=== PATIENT | male | born 1970 | race Caucasian/White ===

== ENCOUNTER 2016-09-21 08:20 | Day surgery (SDC) | payer MEDICARE, MEDICAID ==
[~2016-09-21] VITALS: Ht 149.9 cm; Wt 63.0 kg
[~2016-09-21 08:20] MED LIST: CLAR10CA3 PO; FLON1SPR; MULT1TAB18 PO; VITA-122 PO
[2016-09-21] MEDS ORDERED: dexameTHASONE 4 MG/ML 1ML VIAL (J1100) As Ordered ONE (08:22)
[2016-09-21] MEDS ORDERED: LIDOCAINE 2% INJ 100 MG/5 ML SDV (FOR ANES.) As Ordered ONE (08:22)
[2016-09-21] MEDS ORDERED: PROPOFOL 200 MG/20 ML VIAL As Ordered ONE (08:22)
[2016-09-21] MEDS ORDERED: ROCURONIUM BROMIDE 50 MG/5 ML VIAL As Ordered ONE (08:22)
[2016-09-21] MEDS ORDERED: ONDANSETRON 4MG/2ML VIAL (J2405) As Ordered ONE (08:22)
[2016-09-21] MEDS ORDERED: fentaNYL 250 MCG/5 ML INJECTION (J3010) As Ordered ONE (08:22)
[2016-09-21] MEDS ORDERED: MIDAZOLAM INJ 2 MG/2 ML VIAL (J2250) As Ordered ONE (08:23)
[2016-09-21] MEDS ORDERED: LIDOCAINE 2% W/ EPINEPHRINE 1.7 ML DENTAL INJ As Ordered ONE ×6 (10:00→14:54)
[2016-09-21] MEDS ORDERED: ePHEDrine SULFATE 25 MG/5 ML(5MG/ML) SYRINGE As Ordered ONE (13:00)
[2016-09-21] MEDS ORDERED: PHENYLephrine HCL 500 MCG/5 ML (100MCG/ML) SYRINGE (J2370) As Ordered ONE (13:33)
[2016-09-21] MEDS ORDERED: NEOSTIGMINE 1MG/ML 5 ML SYRINGE (J2710) As Ordered ONE (14:54)
[2016-09-21] MEDS ORDERED: GLYCOPYRROLATE INJ 0.2 MG/ML 2 ML VIAL As Ordered ONE (14:54)
[2016-09-21] MEDS ORDERED: ONDANSETRON 4MG/2ML VIAL (J2405) IV PRN (16:45)
[2016-09-21] MEDS ORDERED: LR 1,000 ML IV SCH (16:45)
[2016-09-21] MEDS ORDERED: PERCOCET 5MG/325MG TAB PO PRN (16:45)
[2016-09-21] MEDS ORDERED: HYDROmorphone HCL 1 MG/ML SYRINGE (J1170) IV PRN (16:45)
[2016-09-21] MEDS ORDERED: fentaNYL 100 MCG/2 ML INJECTION (J3010) IV PRN (16:45)
[2016-09-21] MEDS ORDERED: PERCOCET 5MG/325MG TAB As Ordered ONE (18:47)
[2016-09-21 20:00] VITALS: BP 112/81
[2016-09-21 20:30] VITALS: BP 112/59
[2016-09-21 21:30] VITALS: BP 110/60
[2016-09-21 22:30] VITALS: BP 115/75
[2016-09-21] MEDS ORDERED: ONDANSETRON 4MG/2ML VIAL (J2405) IV ONE (23:00)
[2016-09-21 23:30] VITALS: BP 120/65
[2016-09-22 06:00] VITALS: BP 104/68
--- NOTE | 2016-09-22 06:09 | CR ---
DATE OF ADMISSION: 09/21/2016 CONSULTING PROVIDER: Dr. Ellison REASON FOR CONSULTATION: Overnight observation medical management. HISTORY OF PRESENT ILLNESS: The patient is a 46-year-old male patient of Nataliia Dukes PA-C who presented to the hospital for a same-day surgery for dental caries by Dr. Ellison. He tolerated procedure well and Dr. Ellison wanted to keep him overnight for observation and obstructive sleep apnea (ANDREIA) protocol given the patient's history of ANDREIA. The patient was cleared for preoperative procedure by Nataliia Dukes on 09/19/2016. He the tolerated procedure well. REVIEW OF SYSTEMS: The patient was only complaining of some nausea and abdominal pain. The rest of review of systems was negative. PAST MEDICAL HISTORY: 1. Significant for Down syndrome. 2. Allergic rhinitis. 3. Vitamin deficiency. ALLERGIES: No known drug allergies. PAST SURGICAL HISTORY: Hernia repair. SOCIAL HISTORY: No tobacco use. No alcohol use. No recreational drug use. FAMILY HISTORY: Noncontributory. HOME MEDICATIONS: Vitamin D3, Flonase, Allergy Relief and Claritin. PHYSICAL EXAMINATION: VITALS: Temperature 98.4, pulse 81, respiratory rate 97, blood pressure is 112/81, pulse oximetry 97% on 2 liters nasal cannula. HEENT: Pupils equal, round, react to light accommodation. NECK: Neck is supple. No jugular venous distention (JVD). LUNGS: Clear bilaterally. ABDOMEN: Soft, nontender, nondistended. EXTREMITIES: No clubbing, cyanosis or edema. ASSESSMENT/PLAN: 1. Dental caries status post dental work by Dr. Ellison. We will monitor the patient on continuous pulse oximeter overnight and order obstructive sleep apnea (ANDREIA) protocol. The patient will likely be discharged in the morning once cleared by primary team. 2. History of Down syndrome. 3. History of vitamin D deficiency. 4. Deep venous thrombosis (DVT) prophylaxis. Sequential compression devices (sequential compression device) while in bed. cc: Devin Ellison MD
--- NOTE | 2016-09-23 08:13 | RO ---
DATE OF PROCEDURE: 09/21/2016 PREPROCEDURE DIAGNOSIS: Dental caries. POSTPROCEDURE DIAGNOSIS: Dental caries. SURGEON: Subha Ellison DDS PROCEDURE: The patient, Lucas Lyn, was brought to the operating room and placed onto the operating room table in the supine position. After all monitoring equipment was attached to the patient, vital signs were checked and general anesthetic medicaments were delivered via inhalation. Nasal intubation proceeded and tube extension was secured into position after breathing was monitored. The patient was then prepped and draped for dental procedures. The intraoral cavity was inspected and suctioned free of gross secretions. One moist throat pack was placed, bite block placed. Radiograph taken, six periapical. Decay removal followed by composite condensation was completed on the distal occlusal, buccal, and lingual surface of tooth #5. Mesial and facial surface of tooth #7, mesial, distal and buccal surface of teeth #9, 12, 23, 24, 25, 26, and 30. Mesial, distal, buccal, and lingual surface of tooth #10. Mesial, occlusal , distal, buccal and lingual surface of tooth #13. Buccal surface of tooth #31. Distal occlusal and buccal surface of tooth #32. Six carpules of 2% Lidocaine with 1:100,000 epinephrine was administered vial infiltration. Extraction of teeth #1, 3, 11, 14, 15, 17, 19, 22, 27, and 29 completed with a straight elevator and forceps. Gelfoam and #3-0 chromic gut sutures applied to newly edentulous area. Hemostasis obtained prior to dismissal. Prophy of remaining dentition completed. Fluoride varnish application also completed on remaining dentition. Final removal of all gross fluids from intra and extraoral structures. Bite block removed. Patient then left by the dental in the care of presiding anesthesiologist. There was continuous removal of all gross fluids throughout duration of all performed dental procedures. JAMAAL
== END 2016-09-22 09:50 | disposition home or self-care (01) ==
LOC: M SDC 08:20 → M MS5PR 19:48 → M SDC 09-22 09:50
PROVIDERS: ATTEND Dentist General Practice
DX: K02.9 Dental caries, unspecified (principal); Q90.9 Down syndrome, unspecified; G47.33 Obstructive sleep apnea (adult) (pediatric); J30.9 Allergic rhinitis, unspecified; E55.9 Vitamin D deficiency, unspecified
CPT/HCPCS: 41899; 70310; 88300; J1100; J2250; J2370; J2405; J2710; J3010

== ENCOUNTER → 2017-01-06 | Outpatient (CLI) | payer MEDICARE, MEDICAID ==
--- NOTE | 2017-01-14 07:08 | SLEEPHOME ---
DATE OF PROCEDURE: 01/06/2017 ORDERED BY: Shannen Murrieta. INTERPRETATION: Diagnostic home sleep testing was performed due to concern for the obstructive sleep apnea syndrome. For testing, a NOX-T3 respiratory monitoring device was used. Continuous record was made of pulse, oxygen saturation, air flow, chest and abdominal strain, and body position. 10 hours and 59 minutes of data were reviewed. There were 8 hours and 44 minutes marked as time in bed. During the interval marked time in bed, there were 346 respiratory events identified of 10 seconds in duration or greater for a respiratory event index of 39.6. The events were primarily obstructive though significant central and mixed apneas were also seen. Baseline pulse rate 62 beats per minute. Pulse rate ranged from 51 to 103. Baseline saturation 91%. Lowest oxygen saturation 77%. Testing was performed in both the supine and non-supine positions. IMPRESSION: Abnormal home sleep testing with repetitive respiratory events and oxygen desaturations to 77% with a respiratory event index of 39.6 is consistent with the obstructive sleep apnea syndrome. RECOMMENDATION: Given the occurrence of central events with profound oxygen desaturation, the patient should be referred for formal in laboratory pressure titration.
== END ==
LOC: M SLEEP HO 11:17
PROVIDERS: ATTEND Nurse Practitioner Adult Health
DX: G47.30 Sleep apnea, unspecified (principal)

== ENCOUNTER → 2017-01-17 | Outpatient (CLI) | payer MEDICARE, MEDICAID ==
--- NOTE | 2017-01-22 14:22 | SLEEPCENT ---
DATE OF STUDY: 01/17/2017 ORDERED BY: Shannen Murrieta NP Nocturnal polysomnography was performed for the titration of pressure therapy in this patient with a clinical diagnosis of obstructive sleep apnea syndrome confirmed by home testing which revealed a respiratory event index of 39. For testing, the patient was fit with a ResMed Quattro full face mask of extra small size, 4 cm of water pressure were applied to the circuit and the lights were extinguished. 7 hours and 20 minutes of data were reviewed. There were 398 minutes of sleep identified. Sleep latency was short at 4.5 minutes. Rapid eye movement (REM) sleep was delayed at 123 minutes. Sleep architecture improved with optimal pressure therapy. Overall sleep efficiency was 91.6%. EKG showed a sinus rhythm with an average heart rate of 52 beats per minute. EEG showed reasonably normal waveforms for awake and sleep. Respiratory events were best palliated with CPAP at a pressure of +12. Activity was seen in the limb leads. There were two trains of events and limb movement arousal index was 10.6. IMPRESSION: Obstructive sleep apnea syndrome (G47.33). RECOMMENDATION: Nightly use of pressure therapy, 12 cm of water. Should the patient's sleep symptoms persist, further evaluation of limb movements may be necessary.
== END ==
LOC: M SLEEP 19:33
PROVIDERS: ATTEND Nurse Practitioner Adult Health
DX: G47.33 Obstructive sleep apnea (adult) (pediatric) (principal)

== ENCOUNTER → 2017-10-19 | Outpatient (REF) | payer MEDICARE, MEDICAID ==
[2017-10-19 19:40] LABS: HEMATOCRIT 46.2 % (42.0-52.0); HEMOGLOBIN 15.9 g/dl (13.5-17.5); MEAN CORPUSCULAR HEMOGLOBIN 33.3 pg (27.0-33.0); MEAN CORPUSCULAR HGB CONC 34.4 g/dl (32.0-36.5); MEAN CORPUSCULAR VOLUME 96.7 fl (80.0-96.0); PLATELET COUNT, AUTOMATED 250 10^3/uL (150-450); RED BLOOD COUNT 4.78 10^6/uL (4.30-6.10); WHITE BLOOD COUNT 4.2 10^3/uL (4.0-10.0)
[2017-10-19 20:15] LABS: TOTAL 25(OH) VITAMIN D 19.9 NG/ML (30.0-100.0)
[2017-10-19 20:22] LABS: ANION GAP 5 MEQ/L (8-16); BLOOD UREA NITROGEN 19 MG/DL (7-18); CALCIUM LEVEL 8.2 MG/DL (8.5-10.1); CARBON DIOXIDE LEVEL 33 MEQ/L (21-32); CHLORIDE LEVEL 105 MEQ/L (98-107); CREATININE FOR GFR 1.03 MG/DL (0.70-1.30); GLOMERULAR FILTRATION RATE > 60.0 (>60); GLUCOSE, FASTING 96 MG/DL (70-100); POTASSIUM SERUM 4.1 MEQ/L (3.5-5.1); SODIUM LEVEL 143 MEQ/L (136-145)
== END ==
LOC: M SFHCADAM 14:26
DX: E55.9 Vitamin D deficiency, unspecified (principal); Z13.1 Encounter for screening for diabetes mellitus; G47.33 Obstructive sleep apnea (adult) (pediatric); Z79.899 Other long term (current) drug therapy
CPT/HCPCS: 82306

== ENCOUNTER → 2019-10-25 | Outpatient (REF) | payer MEDICARE, MEDICAID ==
[2019-10-25 17:31] LABS: HEMATOCRIT 49.6 % (42.0-52.0); HEMOGLOBIN 16.9 g/dl (13.5-17.5); MEAN CORPUSCULAR HEMOGLOBIN 33.8 pg (27.0-33.0); MEAN CORPUSCULAR HGB CONC 34.1 g/dl (32.0-36.5); MEAN CORPUSCULAR VOLUME 99.2 fl (80.0-96.0); PLATELET COUNT, AUTOMATED 247 10^3/uL (150-450); WHITE BLOOD COUNT 4.4 10^3/uL (4.0-10.0)
[2019-10-25 18:34] LABS: ALBUMIN 3.8 GM/DL (3.2-5.2); ALT/SGPT 35 U/L (12-78); BILIRUBIN,TOTAL 0.5 MG/DL (0.2-1.0); BLOOD UREA NITROGEN 19 MG/DL (7-18); CALCIUM LEVEL 8.4 MG/DL (8.5-10.1); CARBON DIOXIDE LEVEL 31 MEQ/L (21-32); CHLORIDE LEVEL 104 MEQ/L (98-107); CHOLESTEROL LEVEL 171 MG/DL (<200); CHOLESTEROL RISK RATIO 3.288 (<5); CREATININE FOR GFR 1.03 MG/DL (0.70-1.30); GLOMERULAR FILTRATION RATE > 60.0 (>60); GLUCOSE, FASTING 77 MG/DL (70-100); HDL CHOLESTEROL 52 MG/DL (>40); LDL CHOLESTEROL 83 MG/DL (<100); NON-HDL-C 119 MG/DL; SODIUM LEVEL 141 MEQ/L (136-145); TRIGLYCERIDES LEVEL 182 MG/DL (<150)
== END ==
LOC: M SFHCADAM 14:00
PROVIDERS: ATTEND Physician Assistant
DX: E66.9 Obesity, unspecified (principal); Z13.220 Encounter for screening for lipoid disorders; Z13.1 Encounter for screening for diabetes mellitus; Z79.899 Other long term (current) drug therapy
CPT/HCPCS: 80053; 80061; 84439; 84443; 85027; G0463

== ENCOUNTER → 2020-07-21 | Outpatient (REF) | payer MEDICARE, MEDICAID ==
[2020-07-21 13:00] LABS: BASO # 0.1 10^3/uL (0.0-0.2); BASO % 2.9 % (0.0-1.0); EOS # 0.1 10^3/uL (0.0-0.5); EOS % 3.2 % (0.0-3.0); HEMATOCRIT 51.7 % (42.0-52.0); HEMOGLOBIN 17.1 g/dl (13.5-17.5); LYMPH # 1.1 10^3/uL (1.5-5.0); LYMPH % 26.9 % (24.0-44.0); MEAN CORPUSCULAR HEMOGLOBIN 32.8 pg (27.0-33.0); MEAN CORPUSCULAR HGB CONC 33.1 g/dl (32.0-36.5); MONO # 0.5 10^3/uL (0.0-0.8); MONO % 11.5 % (2.0-8.0); NEUTROPHILS # 2.3 10^3/uL (1.5-8.5); NEUTROPHILS % 55.3 % (36.0-66.0); PLATELET COUNT, AUTOMATED 249 10^3/uL (150-450); RED BLOOD COUNT 5.22 10^6/uL (4.30-6.10); WHITE BLOOD COUNT 4.1 10^3/uL (4.0-10.0)
[2020-07-21 13:37] LABS: ALBUMIN 3.8 GM/DL (3.2-5.2); ALT/SGPT 32 U/L (12-78); BILIRUBIN,TOTAL 0.3 MG/DL (0.2-1.0); BLOOD UREA NITROGEN 16 MG/DL (7-18); CALCIUM LEVEL 8.7 MG/DL (8.5-10.1); CARBON DIOXIDE LEVEL 33 MEQ/L (21-32); CHLORIDE LEVEL 105 MEQ/L (98-107); CREATININE FOR GFR 1.06 MG/DL (0.70-1.30); FREE T4 0.73 NG/DL (0.76-1.46); GLOMERULAR FILTRATION RATE > 60.0 (>60); GLUCOSE, FASTING 58 MG/DL (70-100); POTASSIUM SERUM 4.3 MEQ/L (3.5-5.1); SODIUM LEVEL 142 MEQ/L (136-145); TOTAL PROTEIN 6.8 GM/DL (6.4-8.2)
[2020-07-21 13:38] LABS: TOTAL 25(OH) VITAMIN D 35.7 NG/ML (30.0-100.0); VITAMIN B12 LEVEL 351 PG/ML
[2020-07-21 13:39] LABS: FOLATE 13.6 NG/ML
== END ==
LOC: M SFHCADAM 09:15
PROVIDERS: ATTEND Physician Assistant
DX: M25.50 Pain in unspecified joint (principal); E55.9 Vitamin D deficiency, unspecified; D75.89 Other specified diseases of blood and blood-forming organs; Z79.899 Other long term (current) drug therapy
CPT/HCPCS: 80053; 82306; 82607; 82746; 84439; 84443; 85025; G0463

== ENCOUNTER → 2020-10-27 | Outpatient (REF) | payer MEDICARE, MEDICAID | LOC: M SFHCADAM 09:53 | PROVIDERS: ATTEND Physician Assistant | DX: E03.9 Hypothyroidism, unspecified (principal); D75.89 Other specified diseases of blood and blood-forming organs; E16.2 Hypoglycemia, unspecified; R41.3 Other amnesia ==

== ENCOUNTER → 2020-10-28 | Outpatient (CLI) | payer MEDICARE, MEDICAID ==
[2020-10-28 12:22] LABS: BASO # 0.1 10^3/uL (0.0-0.2); BASO % 3.7 % (0.0-1.0); EOS # 0.1 10^3/uL (0.0-0.5); EOS % 3.7 % (0.0-3.0); HEMATOCRIT 52.1 % (42.0-52.0); HEMOGLOBIN 17.2 g/dl (13.5-17.5); LYMPH # 1.1 10^3/uL (1.5-5.0); LYMPH % 29.7 % (24.0-44.0); MEAN CORPUSCULAR HEMOGLOBIN 32.9 pg (27.0-33.0); MEAN CORPUSCULAR VOLUME 99.6 fl (80.0-96.0); MONO # 0.4 10^3/uL (0.0-0.8); MONO % 11.6 % (2.0-8.0); NEUTROPHILS # 1.8 10^3/uL (1.5-8.5); PLATELET COUNT, AUTOMATED 254 10^3/uL (150-450); RED BLOOD COUNT 5.23 10^6/uL (4.30-6.10); WHITE BLOOD COUNT 3.5 10^3/uL (4.0-10.0)
[2020-10-28 13:13] LABS: BLOOD UREA NITROGEN 18 MG/DL (7-18); CARBON DIOXIDE LEVEL 34 MEQ/L (21-32); CHLORIDE LEVEL 104 MEQ/L (98-107); CREATININE FOR GFR 1.07 MG/DL (0.70-1.30); FOLATE 10.9 NG/ML; FREE T4 0.74 NG/DL (0.76-1.46); GLOMERULAR FILTRATION RATE > 60.0 (>60); GLUCOSE, FASTING 78 MG/DL (70-100); POTASSIUM SERUM 4.3 MEQ/L (3.5-5.1); SODIUM LEVEL 141 MEQ/L (136-145); VITAMIN B12 LEVEL 457 PG/ML
[2020-10-29 18:21] LABS: FREE LAMBDA LIGHT CHAINS SERUM 23.2 mg/L (5.7-26.3); KAPPA/LAMBDA RATIO SERUM 1.77 (0.26-1.65)
== END ==
LOC: M WUC 09:37
PROVIDERS: ATTEND Family Medicine
DX: E03.9 Hypothyroidism, unspecified (principal); D75.89 Other specified diseases of blood and blood-forming organs; E16.2 Hypoglycemia, unspecified; R41.3 Other amnesia

== ENCOUNTER → 2020-11-03 | Outpatient (CLI) | payer MEDICARE, MEDICAID ==
[2020-11-03 13:16] LABS: TOTAL PROTEIN 6.6 GM/DL (6.4-8.2)
[2020-11-04 13:21] LABS: ALBUMIN 3.97 GM/DL (3.29-5.55); ALBUMIN % 60.2 % (55.8-66.1); ALPHA-1-GLOBULIN % 3.7 % (2.9-4.9); ALPHA-1-GLOBULINS 0.24 GM/DL (0.17-0.41); ALPHA-2-GLOBULINS 0.63 GM/DL (0.42-0.99); ALPHA-2-GLOBULINS % 9.5 % (7.1-11.8); BETA-1-GLOBULINS 0.41 GM/DL (0.28-0.60); BETA-1-GLOBULINS % 6.2 % (4.7-7.2); BETA-2-GLOBULINS 0.33 GM/DL (0.19-0.55); GAMMA GLOBULIN % 15.4 % (11.1-18.8); GAMMA GLOBULINS 1.02 GM/DL (0.65-1.58)
[2020-11-04 17:07] LABS: FREE KAPPA LIGHT CHAINS SERUM 38.7 mg/L (3.3-19.4); FREE LAMBDA LIGHT CHAINS SERUM 22.1 mg/L (5.7-26.3); KAPPA/LAMBDA RATIO SERUM 1.75 (0.26-1.65)
== END ==
LOC: M WUC 09:13
PROVIDERS: ATTEND Physician Assistant
DX: D89.89 Other specified disorders involving the immune mechanism, not elsewhere classified (principal)

== ENCOUNTER → 2021-05-06 | Outpatient (REF) | payer MEDICARE, MEDICAID ==
[2021-05-06 18:42] LABS: HEMATOCRIT 46.6 % (42.0-52.0); HEMOGLOBIN 15.6 g/dl (13.5-17.5); MEAN CORPUSCULAR HGB CONC 33.5 g/dl (32.0-36.5); MEAN CORPUSCULAR VOLUME 98.5 fl (80.0-96.0); PLATELET COUNT, AUTOMATED 233 10^3/uL (150-450); RED BLOOD COUNT 4.73 10^6/uL (4.30-6.10); WHITE BLOOD COUNT 5.2 10^3/uL (4.0-10.0)
[2021-05-06 19:03] LABS: ALBUMIN 3.3 GM/DL (3.2-5.2); ALT/SGPT 33 U/L (12-78); BILIRUBIN,TOTAL 0.6 MG/DL (0.2-1.0); BLOOD UREA NITROGEN 16 MG/DL (7-18); CALCIUM LEVEL 8.4 MG/DL (8.5-10.1); CARBON DIOXIDE LEVEL 32 MEQ/L (21-32); CHLORIDE LEVEL 107 MEQ/L (98-107); CHOLESTEROL LEVEL 148 MG/DL (<200); CREATININE FOR GFR 1.13 MG/DL (0.70-1.30); FREE T4 0.83 NG/DL (0.76-1.46); GLOMERULAR FILTRATION RATE > 60.0 (>56); GLUCOSE, FASTING 103 MG/DL (70-100); HDL CHOLESTEROL 50 MG/DL (>40); LDL CHOLESTEROL 54 MG/DL (<100); NON-HDL-C 98 MG/DL; SODIUM LEVEL 143 MEQ/L (136-145); THYROID STIMULATING HORMONE 0.133 uIU/ML (0.358-3.740); TOTAL PROTEIN 6.3 GM/DL (6.4-8.2); TRIGLYCERIDES LEVEL 222 MG/DL (<150)
[2021-05-10 16:11] LABS: FREE KAPPA LIGHT CHAINS SERUM 35.8 mg/L (3.3-19.4); FREE KAPPA LIGHT CHAINS URINE 16.77 mg/L (0.63-113.79); FREE LAMBDA LIGHT CHAINS SERUM 22.3 mg/L (5.7-26.3); FREE LAMBDA LIGHT CHAINS URINE 2.07 mg/L (0.47-11.77); KAPPA/LAMBDA RATIO SERUM 1.61 (0.26-1.65); KAPPA/LAMBDA RATIO URINE 8.1 (1.03-31.76)
== END ==
LOC: M SFHCADAM 15:52
PROVIDERS: ATTEND Physician Assistant
DX: E03.9 Hypothyroidism, unspecified (principal); D75.89 Other specified diseases of blood and blood-forming organs; D89.89 Other specified disorders involving the immune mechanism, not elsewhere classified; Z12.5 Encounter for screening for malignant neoplasm of prostate; Z13.220 Encounter for screening for lipoid disorders; Z13.1 Encounter for screening for diabetes mellitus
CPT/HCPCS: 80053; 80061; 83883; 84439; 84443; 85027; G0103; G0463

== ENCOUNTER 2021-12-27 23:07 | Emergency (ER) | payer MEDICARE, MEDICAID ==
[~2021-12-27] VITALS: Ht 149.9 cm; Wt 63.0 kg
[2021-12-28 00:41] LABS: BASO # 0.1 10^3/uL (0.0-0.2); BASO % 1.7 % (0.0-1.0); EOS # 0.2 10^3/uL (0.0-0.5); EOS % 3.3 % (0.0-3.0); HEMATOCRIT 49.3 % (42.0-52.0); HEMOGLOBIN 17.1 g/dl (13.5-17.5); LYMPH # 1.3 10^3/uL (1.5-5.0); LYMPH % 23.3 % (24.0-44.0); MEAN CORPUSCULAR HEMOGLOBIN 33.6 pg (27.0-33.0); MEAN CORPUSCULAR HGB CONC 34.7 g/dl (32.0-36.5); MEAN CORPUSCULAR VOLUME 96.9 fl (80.0-96.0); MONO # 0.5 10^3/uL (0.0-0.8); MONO % 8.2 % (2.0-8.0); NEUTROPHILS # 3.6 10^3/uL (1.5-8.5); NEUTROPHILS % 63.2 % (36.0-66.0); PLATELET COUNT, AUTOMATED 226 10^3/uL (150-450); RED BLOOD COUNT 5.09 10^6/uL (4.30-6.10); WHITE BLOOD COUNT 5.7 10^3/uL (4.0-10.0)
[2021-12-28 01:38] LABS: ALBUMIN 3.4 GM/DL (3.2-5.2); ALT/SGPT 30 U/L (12-78); BILIRUBIN,TOTAL 0.3 MG/DL (0.2-1.0); BLOOD UREA NITROGEN 14 MG/DL (7-18); CALCIUM LEVEL 8.8 MG/DL (8.5-10.1); CARBON DIOXIDE LEVEL 30 MEQ/L (21-32); CHLORIDE LEVEL 107 MEQ/L (98-107); CREATININE FOR GFR 1.05 MG/DL (0.70-1.30); GLOMERULAR FILTRATION RATE > 60.0 (>56); GLUCOSE, FASTING 105 MG/DL (70-100); LIPASE 117 U/L (73-393); MAGNESIUM LEVEL 2.3 MG/DL (1.8-2.4); POTASSIUM SERUM 4.2 MEQ/L (3.5-5.1); SODIUM LEVEL 141 MEQ/L (136-145); TOTAL PROTEIN 6.8 GM/DL (6.4-8.2)
[2021-12-28] MEDS ORDERED: NS 1,000 ML IV ONE (02:35)
[2021-12-28 05:10] VITALS: BP 128/64
== END 2021-12-28 05:29 | disposition home or self-care (01) ==
LOC: EDBD 23:07 → M ED 23:07
DX: K52.9 Noninfective gastroenteritis and colitis, unspecified (principal); Z91.040 Latex allergy status; Z79.2 Long term (current) use of antibiotics; Z79.899 Other long term (current) drug therapy

== ENCOUNTER → 2022-02-08 | Outpatient (CLI) | payer MEDICARE, MEDICAID | LOC: M WHC 10:59 | PROVIDERS: ATTEND Physician Assistant | DX: Z13.820 Encounter for screening for osteoporosis (principal); M85.89 Other specified disorders of bone density and structure, multiple sites ==

== ENCOUNTER → 2022-05-09 | Outpatient (CLI) | payer MEDICARE, MEDICAID ==
[2022-05-09 09:00] LABS: HEMATOCRIT 49.3 % (42.0-52.0); HEMOGLOBIN 16.4 g/dl (13.5-17.5); MEAN CORPUSCULAR HEMOGLOBIN 32.9 pg (27.0-33.0); MEAN CORPUSCULAR HGB CONC 33.3 g/dl (32.0-36.5); PLATELET COUNT, AUTOMATED 220 10^3/uL (150-450); RED BLOOD COUNT 4.98 10^6/uL (4.30-6.10); WHITE BLOOD COUNT 2.8 10^3/uL (4.0-10.0)
[2022-05-09 09:08] LABS: HEMOGLOBIN A1c 4.9 % (4.0-6.0)
[2022-05-09 09:27] LABS: THYROID STIMULATING HORMONE 2.728 uIU/ML (0.55-4.78)
[2022-05-09 09:32] LABS: ALBUMIN 3.4 G/DL (3.2-5.2); ALKALINE PHOSPHATASE 91 U/L (46-116); ALT/SGPT 28 U/L (7.0-40); AST/SGOT 30 U/L (<34); BILIRUBIN,TOTAL 0.8 MG/DL (0.3-1.2); BLOOD UREA NITROGEN 16 MG/DL (9-23); CALCIUM LEVEL 8.2 MG/DL (8.5-10.1); CARBON DIOXIDE LEVEL 27 MMOL/L (20-31); CHLORIDE LEVEL 107 MMOL/L (98-107); CHOLESTEROL LEVEL 155 MG/DL (<200); CREATININE FOR GFR 1.06 MG/DL (0.70-1.30); GLOMERULAR FILTRATION RATE > 60.0 (>56); GLUCOSE, FASTING 86 MG/DL (60-100); HDL CHOLESTEROL 51.6 MG/DL (>40); NON-HDL-C 103 MG/DL; POTASSIUM SERUM 4.4 MMOL/L (3.5-5.1); SODIUM LEVEL 143 MMOL/L (136-145); TOTAL PROTEIN 6.2 G/DL (5.7-8.2); TRIGLYCERIDES LEVEL 112 MG/DL (<150)
== END ==
LOC: M LAB 08:15
PROVIDERS: ATTEND Physician Assistant
DX: E03.9 Hypothyroidism, unspecified (principal); G47.33 Obstructive sleep apnea (adult) (pediatric); E66.9 Obesity, unspecified; Z13.1 Encounter for screening for diabetes mellitus; Z12.5 Encounter for screening for malignant neoplasm of prostate; Z13.220 Encounter for screening for lipoid disorders
CPT/HCPCS: 36415; 80053; 80061; 83036; 84439; 84443; 85027; G0103

== ENCOUNTER → 2022-05-13 | Outpatient (CLI) | payer MEDICARE, MEDICAID ==
[2022-05-13 09:43] LABS: BASO # 0.1 10^3/uL (0.0-0.2); BASO % 2.1 % (0.0-1.0); EOS # 0.1 10^3/uL (0.0-0.5); EOS % 2.4 % (0.0-3.0); HEMATOCRIT 50.5 % (42.0-52.0); HEMOGLOBIN 16.7 g/dl (13.5-17.5); LYMPH # 0.8 10^3/uL (1.5-5.0); LYMPH % 26.9 % (24.0-44.0); MEAN CORPUSCULAR HGB CONC 33.1 g/dl (32.0-36.5); MEAN CORPUSCULAR VOLUME 99.8 fl (80.0-96.0); MONO # 0.7 10^3/uL (0.0-0.8); MONO % 23.8 % (2.0-8.0); NEUTROPHILS # 1.3 10^3/uL (1.5-8.5); NEUTROPHILS % 44.5 % (36.0-66.0); PLATELET COUNT, AUTOMATED 178 10^3/uL (150-450); RED BLOOD COUNT 5.06 10^6/uL (4.30-6.10); WHITE BLOOD COUNT 2.9 10^3/uL (4.0-10.0)
== END ==
LOC: M LAB 09:16
PROVIDERS: ATTEND Physician Assistant
DX: D72.819 Decreased white blood cell count, unspecified (principal)

== ENCOUNTER → 2022-06-21 | Outpatient (CLI) | payer MEDICARE, MEDICAID ==
[2022-06-21 14:28] LABS: BASO # 0.1 10^3/uL (0.0-0.2); BASO % 2.3 % (0.0-1.0); EOS # 0.1 10^3/uL (0.0-0.5); EOS % 3.3 % (0.0-3.0); HEMATOCRIT 48.4 % (42.0-52.0); LYMPH # 1.3 10^3/uL (1.5-5.0); LYMPH % 32.5 % (24.0-44.0); MEAN CORPUSCULAR HEMOGLOBIN 33.1 pg (27.0-33.0); MEAN CORPUSCULAR HGB CONC 33.1 g/dl (32.0-36.5); MONO # 0.3 10^3/uL (0.0-0.8); MONO % 8.2 % (2.0-8.0); NEUTROPHILS # 2.1 10^3/uL (1.5-8.5); NEUTROPHILS % 53.4 % (36.0-66.0); PLATELET COUNT, AUTOMATED 218 10^3/uL (150-450); RED BLOOD COUNT 4.84 10^6/uL (4.30-6.10); WHITE BLOOD COUNT 3.9 10^3/uL (4.0-10.0)
== END ==
LOC: M LAB 13:48
PROVIDERS: ATTEND Physician Assistant
DX: D72.818 Other decreased white blood cell count (principal)

== ENCOUNTER → 2022-06-28 | Outpatient (CLI) | payer MEDICARE, MEDICAID ==
[2022-06-28 16:43] LABS: ALBUMIN 3.5 G/DL (3.2-5.2); ALKALINE PHOSPHATASE 85 U/L (46-116); ALT/SGPT 21 U/L (7.0-40); AST/SGOT 29 U/L (<34); BILIRUBIN,TOTAL 0.4 MG/DL (0.3-1.2); BLOOD UREA NITROGEN 16 MG/DL (9-23); CALCIUM LEVEL 8.4 MG/DL (8.5-10.1); CARBON DIOXIDE LEVEL 33 MMOL/L (20-31); CHLORIDE LEVEL 101 MMOL/L (98-107); GLOMERULAR FILTRATION RATE > 60.0 (>56); GLUCOSE, FASTING 91 MG/DL (60-100); POTASSIUM SERUM 4.4 MMOL/L (3.5-5.1); SODIUM LEVEL 140 MMOL/L (136-145); TOTAL PROTEIN 6.5 G/DL (5.7-8.2)
== END ==
LOC: M LAB 15:21
PROVIDERS: ATTEND Physician Assistant
DX: D72.818 Other decreased white blood cell count (principal)

== ENCOUNTER → 2022-07-13 | Outpatient (CLI) | payer MEDICARE, MEDICAID ==
[~2022-07-13] MED LIST changes: +ACET1TAB55 PO; +ALEN70TA82; +DONE10TA90; +GUAI100L6 PO; +IBUP200T46 PO; +LEVO75TA4; +MEMA1TAB3; +MYLA1SUS PO
== END ==
LOC: M LAB 08:24
PROVIDERS: ATTEND Family Medicine
DX: E55.9 Vitamin D deficiency, unspecified (principal); Z79.899 Other long term (current) drug therapy

== ENCOUNTER → 2022-07-13 | Outpatient (CLI) | payer MEDICARE, MEDICAID ==
[2022-07-13 09:48] LABS: THYROID STIMULATING HORMONE 1.081 uIU/ML (0.55-4.78)
[2022-07-13 09:49] LABS: FREE T4 1.04 NG/DL (0.89-1.76)
== END ==
LOC: M LAB 08:28
PROVIDERS: ATTEND Physician Assistant
DX: E03.9 Hypothyroidism, unspecified (principal); E55.9 Vitamin D deficiency, unspecified; Z79.890 Hormone replacement therapy; Z79.899 Other long term (current) drug therapy

== ENCOUNTER 2023-03-14 09:01 | Day surgery (SDC) | payer MEDICARE, MEDICAID ==
[~2023-03-14] VITALS: Ht 147.3 cm; Wt 57.7 kg
[~2023-03-14 09:01] MED LIST changes: +AZEL1SPR3; +CelecoXIB 400 MG CAP PO ONE; +D200CAP PO; +LIDOCAINE 1% SDV 30ML VIAL As Ordered ONE; +LIDOCAINE 2% 100MG/5ML SDV (FOR ANES.) As Ordered ONE; +MIDAZOLAM INJ 2MG/2ML VIAL As Ordered ONE; +ONDANSETRON 4MG 2ML VIAL As Ordered ONE; +ROCURONIUM BROMIDE 50MG/5ML VIAL As Ordered ONE; +SEVOFLURANE INHAL SOLN 250 ML BTL As Ordered ONE; +THERTAB52 PO; +ceFAZolin SOD 2 GM in IV 1 EA IV ONE; +fentaNYL 250 MCG/5 ML INJECTION As Ordered ONE; +propofoL 200 MG/20 ML VIAL As Ordered ONE
[2023-03-14] MEDS ORDERED: LR 1,000 ML IV SCH ×2 (10:00→13:20)
[2023-03-14] MEDS ORDERED: GLYCOPYRROLATE INJ 0.2 MG/ML 2 ML VIAL As Ordered ONE (10:56)
[2023-03-14] MEDS ORDERED: SUGAMMADEX SODIUM 500 MG/5 ML VIAL (BRIDION) As Ordered ONE (11:21)
[2023-03-14] MEDS ORDERED: PHENYLephrine 500MCG 5ML (100MCG/ML) SYRINGE As Ordered ONE (11:21)
[2023-03-14] MEDS ORDERED: ePHEDrine SULFATE 25 MG/5 ML(5MG/ML) SYRINGE As Ordered ONE (11:21)
[2023-03-14] MEDS ORDERED: ACETAMINOPHEN 1000MG 100ML IV BAG As Ordered ONE (11:21)
[2023-03-14] MEDS ORDERED: KETOROLAC 60MG 2ML VIAL As Ordered ONE (11:28)
[2023-03-14] MEDS ORDERED: fentaNYL 100 MCG/2 ML INJECTION IV PRN (13:20)
[2023-03-14] MEDS ORDERED: oxyCODONE 5MG TAB PO PRN (13:20)
[2023-03-14] MEDS ORDERED: HYDROMORPHONE HCL 0.5 MG/ 0.5 ML SYRINGE IV PRN (13:20)
[2023-03-14] MEDS ORDERED: ONDANSETRON 4MG 2ML VIAL IV PRN (13:20)
[2023-03-14] MEDS ORDERED: NORCO, ANEXSIA 5/325MG TABLET (HYDROcodone/ACETAMINOPHEN) PO PRN ×2 (13:35)
[2023-03-14 14:20] VITALS: BP 121/73; TEMP 97.1; O2SAT 95
[2023-03-14] MEDS ORDERED: KETOROLAC 30 MG/ML 1ML VIAL IV SCH (19:00)
== END 2023-03-14 14:48 | disposition home or self-care (01) ==
LOC: M SDC 09:01
PROVIDERS: ATTEND Surgery
DX: K40.90 Unilateral inguinal hernia, without obstruction or gangrene, not specified as recurrent (principal); Q90.9 Down syndrome, unspecified; E55.9 Vitamin D deficiency, unspecified; E03.9 Hypothyroidism, unspecified; M81.0 Age-related osteoporosis without current pathological fracture; F03.90 Unspecified dementia, unspecified severity, without behavioral disturbance, psychotic disturbance, mood disturbance, and anxiety; J30.2 Other seasonal allergic rhinitis; Z79.899 Other long term (current) drug therapy
CPT/HCPCS: 49650; C1781; J0131; J0665; J1100; J1885; J2250; J2371; J2405; J3010; S2900

== ENCOUNTER → 2023-04-04 | Outpatient (CLI) | payer MEDICARE, MEDICAID ==
[~2023-04-04] MED LIST changes: -ALEN70TA82; +ALEN70TA82 PO; -CelecoXIB 400 MG CAP PO ONE; -DONE10TA90; +DONE10TA90 PO; -LEVO75TA4; +LEVO75TA4 PO; -LIDOCAINE 1% SDV 30ML VIAL As Ordered ONE; -LIDOCAINE 2% 100MG/5ML SDV (FOR ANES.) As Ordered ONE; -MEMA1TAB3; +MEMA1TAB3 PO; -MIDAZOLAM INJ 2MG/2ML VIAL As Ordered ONE; -ONDANSETRON 4MG 2ML VIAL As Ordered ONE; -ROCURONIUM BROMIDE 50MG/5ML VIAL As Ordered ONE; -SEVOFLURANE INHAL SOLN 250 ML BTL As Ordered ONE; -ceFAZolin SOD 2 GM in IV 1 EA IV ONE; -fentaNYL 250 MCG/5 ML INJECTION As Ordered ONE; -propofoL 200 MG/20 ML VIAL As Ordered ONE
[2023-04-04 12:54] LABS: BASO # 0.1 10^3/uL (0.0-0.2); BASO % 1.9 % (0.0-1.0); EOS # 0.1 10^3/uL (0.0-0.5); EOS % 2.4 % (0.0-3.0); HEMOGLOBIN 16.9 g/dl (13.5-17.5); LYMPH # 1.1 10^3/uL (1.5-5.0); LYMPH % 25.9 % (24.0-44.0); MEAN CORPUSCULAR HEMOGLOBIN 33.5 pg (27.0-33.0); MEAN CORPUSCULAR HGB CONC 33.8 g/dl (32.0-36.5); MONO # 0.4 10^3/uL (0.0-0.8); MONO % 8.8 % (2.0-8.0); NEUTROPHILS # 2.6 10^3/uL (1.5-8.5); NEUTROPHILS % 60.8 % (36.0-66.0); PLATELET COUNT, AUTOMATED 231 10^3/uL (150-450); RED BLOOD COUNT 5.05 10^6/uL (4.30-6.10); WHITE BLOOD COUNT 4.2 10^3/uL (4.0-10.0)
[2023-04-04 13:22] LABS: ALBUMIN 3.6 G/DL (3.2-5.2); ALKALINE PHOSPHATASE 92 U/L (46-116); ALT/SGPT 17 U/L (7.0-40); AST/SGOT 25 U/L (<34); BILIRUBIN,TOTAL 0.4 MG/DL (0.3-1.2); BLOOD UREA NITROGEN 14 MG/DL (9-23); CALCIUM LEVEL 8.5 MG/DL (8.5-10.1); CARBON DIOXIDE LEVEL 30 MMOL/L (20-31); CHLORIDE LEVEL 104 MMOL/L (98-107); CREATININE FOR GFR 0.95 MG/DL (0.70-1.30); GLOMERULAR FILTRATION RATE > 60.0 (>56); GLUCOSE, FASTING 94 MG/DL (60-100); POTASSIUM SERUM 4.1 MMOL/L (3.5-5.1); SODIUM LEVEL 141 MMOL/L (136-145); TOTAL PROTEIN 6.7 G/DL (5.7-8.2)
== END ==
LOC: M LAB 12:26
PROVIDERS: ATTEND Physician Assistant
DX: R10.31 Right lower quadrant pain (principal)

== ENCOUNTER → 2023-04-04 | Outpatient (REF) | payer MEDICARE, MEDICAID | LOC: M SFHCADAM 11:34 | PROVIDERS: ATTEND Physician Assistant | DX: R10.31 Right lower quadrant pain (principal) ==

== ENCOUNTER → 2023-04-04 | Outpatient (CLI) | payer MEDICARE, MEDICAID ==
[~2023-04-04] MED LIST changes: +GASTROGRAFIN SOLUTION 30ML As Ordered ONE; +ISOVUE-370 76% 100ML VIAL As Ordered ONE
== END ==
LOC: M RAD 12:20
PROVIDERS: ATTEND Physician Assistant
DX: K40.90 Unilateral inguinal hernia, without obstruction or gangrene, not specified as recurrent (principal)

== ENCOUNTER → 2023-04-05 | Outpatient (CLI) | payer MEDICARE, MEDICAID ==
[~2023-04-05] MED LIST changes: -GASTROGRAFIN SOLUTION 30ML As Ordered ONE; -ISOVUE-370 76% 100ML VIAL As Ordered ONE
[2023-04-05 09:57] LABS: APPEARANCE, URINE HAZY (CLEAR); BACTERIA, URINE AUTO NEGATIVE (NEGATIVE); BILIRUBIN, URINE AUTO NEGATIVE (NEGATIVE); BLOOD, URINE BLOOD NEGATIVE (NEGATIVE); COLOR, URINE YELLOW (YELLOW); GLUCOSE, URINE (UA) AUTO NEGATIVE (NEGATIVE); KETONE, URINE AUTO NEGATIVE (NEGATIVE); LEUKOCYTE ESTERASE, URINE AUTO NEGATIVE (NEGATIVE); MUCUS, URINE SMALL (NEGATIVE); NITRITE, URINE AUTO NEGATIVE (NEGATIVE); PROTEIN, URINE AUTO NEGATIVE (NEGATIVE); RBC, URINE AUTO 0 /HPF (0-3); SQUAMOUS EPITHELIAL CELL UR AU 0 /HPF (0-6); UROBILINOGEN, URINE AUTO 0.2 mg/dL (0.0-2.0); WBC, URINE AUTO 0 /HPF (0-3)
== END ==
LOC: M LAB 09:11
PROVIDERS: ATTEND Physician Assistant
DX: N32.89 Other specified disorders of bladder (principal); Z79.899 Other long term (current) drug therapy

== ENCOUNTER → 2023-05-30 | Outpatient (REF) | payer MEDICARE, MEDICAID | LOC: M SFHCADAM 16:09 | PROVIDERS: ATTEND Physician Assistant | DX: Z12.5 Encounter for screening for malignant neoplasm of prostate (principal); Z13.220 Encounter for screening for lipoid disorders; Z13.1 Encounter for screening for diabetes mellitus; E55.9 Vitamin D deficiency, unspecified ==

== ENCOUNTER → 2023-06-01 | Outpatient (CLI) | payer MEDICARE, MEDICAID ==
[~2023-06-01] MED LIST changes: +LIDOCAINE 1% MDV 20ML VIAL As Ordered ONE
[2023-06-01 13:40] VITALS: BP 129/78; TEMP 98.1; O2SAT 97
== END ==
LOC: M RAD 13:44
PROVIDERS: ATTEND Surgery
DX: K40.90 Unilateral inguinal hernia, without obstruction or gangrene, not specified as recurrent (principal); T81.89XD Other complications of procedures, not elsewhere classified, subsequent encounter

== ENCOUNTER 2023-06-02 08:58 | Day surgery (SDC) | payer MEDICARE, MEDICAID ==
[~2023-06-02] VITALS: Ht 149.9 cm; Wt 57.6 kg
[2023-06-02] MEDS ORDERED: LR 1,000 ML IV SCH ×2 (09:30→11:35)
[2023-06-02] MEDS ORDERED: propofoL 200 MG/20 ML VIAL As Ordered ONE (10:23)
[2023-06-02] MEDS ORDERED: LIDOCAINE 2% 100MG/5ML SDV (FOR ANES.) As Ordered ONE (10:23)
[2023-06-02] MEDS ORDERED: ONDANSETRON 4MG 2ML VIAL As Ordered ONE (10:23)
[2023-06-02] MEDS ORDERED: ROCURONIUM BROMIDE 50MG/5ML VIAL As Ordered ONE (10:23)
[2023-06-02] MEDS ORDERED: SUGAMMADEX SODIUM 500 MG/5 ML VIAL (BRIDION) As Ordered ONE (10:23)
[2023-06-02] MEDS ORDERED: fentaNYL 100 MCG/2 ML INJECTION As Ordered ONE (10:27)
[2023-06-02] MEDS ORDERED: oxyCODONE 5MG TAB PO PRN (11:35)
[2023-06-02] MEDS ORDERED: HYDROMORPHONE HCL 0.5 MG/ 0.5 ML SYRINGE IV PRN (11:35)
[2023-06-02] MEDS ORDERED: ONDANSETRON 4MG 2ML VIAL IV PRN (11:35)
[2023-06-02] MEDS ORDERED: fentaNYL 100 MCG/2 ML INJECTION IV PRN (11:35)
[2023-06-02] MEDS ORDERED: LIDOCAINE W/EPINEPHRINE 1% 20ML VIAL As Ordered ONE (11:49)
[2023-06-02 12:45] VITALS: BP 125/62; TEMP 98.3; O2SAT 98
== END 2023-06-02 12:53 | disposition home or self-care (01) ==
LOC: M SDC 08:58
PROVIDERS: ATTEND Dentist Oral and Maxillofacial Surgery
DX: K02.9 Dental caries, unspecified (principal); E03.9 Hypothyroidism, unspecified; M81.0 Age-related osteoporosis without current pathological fracture; F03.90 Unspecified dementia, unspecified severity, without behavioral disturbance, psychotic disturbance, mood disturbance, and anxiety; Q90.9 Down syndrome, unspecified; J30.2 Other seasonal allergic rhinitis; Z79.899 Other long term (current) drug therapy
CPT/HCPCS: 36415; 41899; 80061; 82306; 83036; 88300; G0103; J1100; J2405; J3010

== ENCOUNTER → 2023-06-02 | Outpatient (CLI) | payer MEDICARE, MEDICAID ==
[~2023-06-02] MED LIST changes: -LIDOCAINE 1% MDV 20ML VIAL As Ordered ONE
[2023-06-02 07:40] LABS: HEMOGLOBIN A1c 5.2 % (4.0-6.0)
[2023-06-02 07:45] LABS: CHOLESTEROL RISK RATIO 2.79 (<5); HDL CHOLESTEROL 54.4 MG/DL (>40); LDL CHOLESTEROL 74.2 MG/DL (<100); NON-HDL-C 97.6 MG/DL; PSA SCREENING 0.35 NG/ML (< 4.00)
[2023-06-02 07:48] LABS: TOTAL 25(OH) VITAMIN D 63.4 NG/ML (20.0-100.0)
== END ==
LOC: M LAB 06:28
PROVIDERS: ATTEND Physician Assistant
DX: E55.9 Vitamin D deficiency, unspecified (principal); Z12.5 Encounter for screening for malignant neoplasm of prostate; Z13.220 Encounter for screening for lipoid disorders; Z13.1 Encounter for screening for diabetes mellitus; Z79.899 Other long term (current) drug therapy
CPT/HCPCS: 36415; 80061; 82306; 83036; G0103

== ENCOUNTER → 2023-12-09 | Outpatient (CLI) | payer MEDICARE, MEDICAID ==
[~2023-12-09] MED LIST changes: +COLA100C5 PO; +MIRA3350 PO
[2023-12-09 10:38] LABS: BASO # 0.1 10^3/uL (0.0-0.2); BASO % 2.6 % (0.0-1.0); EOS # 0.1 10^3/uL (0.0-0.5); EOS % 1.9 % (0.0-3.0); HEMATOCRIT 50.7 % (42.0-52.0); HEMOGLOBIN 17.2 g/dl (13.5-17.5); LYMPH % 25.9 % (24.0-44.0); MEAN CORPUSCULAR HEMOGLOBIN 33.8 pg (27.0-33.0); MEAN CORPUSCULAR HGB CONC 33.9 g/dl (32.0-36.5); MEAN CORPUSCULAR VOLUME 99.6 fl (80.0-96.0); MONO # 0.4 10^3/uL (0.0-0.8); MONO % 10.3 % (2.0-8.0); NEUTROPHILS # 2.2 10^3/uL (1.5-8.5); PLATELET COUNT, AUTOMATED 211 10^3/uL (150-450); RED BLOOD COUNT 5.09 10^6/uL (4.30-6.10); WHITE BLOOD COUNT 3.8 10^3/uL (4.0-10.0)
[2023-12-09 10:39] LABS: APPEARANCE, URINE CLEAR (CLEAR); BACTERIA, URINE AUTO NEGATIVE (NEGATIVE); BILIRUBIN, URINE AUTO NEGATIVE (NEGATIVE); BLOOD, URINE BLOOD NEGATIVE (NEGATIVE); COLOR, URINE YELLOW (YELLOW); GLUCOSE, URINE (UA) AUTO NEGATIVE (NEGATIVE); KETONE, URINE AUTO NEGATIVE (NEGATIVE); LEUKOCYTE ESTERASE, URINE AUTO NEGATIVE (NEGATIVE); MUCUS, URINE SMALL (NEGATIVE); NITRITE, URINE AUTO NEGATIVE (NEGATIVE); PROTEIN, URINE AUTO NEGATIVE (NEGATIVE); RBC, URINE AUTO 0 /HPF (0-3); SPECIFIC GRAVITY URINE AUTO 1.017 (1.002-1.035); SQUAMOUS EPITHELIAL CELL UR AU 0 /HPF (0-6); UROBILINOGEN, URINE AUTO 0.2 mg/dL (0.0-2.0); WBC, URINE AUTO 0 /HPF (0-3)
[2023-12-09 10:50] LABS: HEMOGLOBIN A1c 4.9 % (4.0-6.0)
[2023-12-09 11:02] LABS: LIPASE 153 U/L (12-53)
[2023-12-09 11:04] LABS: ALBUMIN 3.7 G/DL (3.2-5.2); ALKALINE PHOSPHATASE 88 U/L (46-116); ALT/SGPT 26 U/L (7.0-40); AST/SGOT 20 U/L (<34); BILIRUBIN,TOTAL 0.8 MG/DL (0.3-1.2); BLOOD UREA NITROGEN 12 MG/DL (9-23); CALCIUM LEVEL 8.7 MG/DL (8.5-10.1); CARBON DIOXIDE LEVEL 34 MMOL/L (20-31); CHLORIDE LEVEL 106 MMOL/L (98-107); CHOLESTEROL LEVEL 153 MG/DL (<200); CHOLESTEROL RISK RATIO 3.03 (<5); CREATININE FOR GFR 1.04 MG/DL (0.70-1.30); GLOMERULAR FILTRATION RATE > 60.0 (>56); GLUCOSE, FASTING 92 MG/DL (60-100); HDL CHOLESTEROL 50.4 MG/DL (>40); LDL CHOLESTEROL 74.6 MG/DL (<100); NON-HDL-C 102.6 MG/DL; POTASSIUM SERUM 4.7 MMOL/L (3.5-5.1); SODIUM LEVEL 141 MMOL/L (136-145); TOTAL PROTEIN 6.7 G/DL (5.7-8.2); TRIGLYCERIDES LEVEL 140 MG/DL (<150)
[2023-12-09 11:07] LABS: THYROID STIMULATING HORMONE 0.619 uIU/ML (0.55-4.78)
[2023-12-09 11:08] LABS: TOTAL 25(OH) VITAMIN D 57.5 NG/ML (20.0-100.0)
[2023-12-09 11:09] LABS: FREE T4 0.97 NG/DL (0.89-1.76)
[2023-12-09 11:10] LABS: VITAMIN B12 LEVEL 395 PG/ML (211-911)
[2023-12-12 13:43] LABS: PSA FREE 0.1 ng/mL; PSA TOTAL 0.2 ng/mL (< OR = 4.0)
== END ==
LOC: M LAB 09:30
PROVIDERS: ATTEND Family Medicine
DX: E03.9 Hypothyroidism, unspecified (principal); F03.90 Unspecified dementia, unspecified severity, without behavioral disturbance, psychotic disturbance, mood disturbance, and anxiety; R10.30 Lower abdominal pain, unspecified; M81.0 Age-related osteoporosis without current pathological fracture; R30.1 Vesical tenesmus; Z79.899 Other long term (current) drug therapy

== ENCOUNTER → 2023-12-12 | Outpatient (CLI) | payer MEDICARE, MEDICAID ==
[~2023-12-12] MED LIST changes: -COLA100C5 PO; -MIRA3350 PO
== END ==
LOC: M RAD 12:46
PROVIDERS: ATTEND Family Medicine
DX: N32.89 Other specified disorders of bladder (principal); K40.20 Bilateral inguinal hernia, without obstruction or gangrene, not specified as recurrent; R59.0 Localized enlarged lymph nodes; R10.30 Lower abdominal pain, unspecified

== ENCOUNTER → 2023-12-12 | Outpatient (CLI) | payer MEDICARE, MEDICAID ==
[2023-12-12 08:32] LABS: C REACTIVE PROTEIN QUANTITATIV < 0.40 MG/DL (<1.0); LIPASE 285 U/L (12-53)
[2023-12-13 17:33] LABS: PROTEIN, TOTAL SO 6.4 g/dL (6.1-8.1)
== END ==
LOC: M LAB 07:26
PROVIDERS: ATTEND Family Medicine
DX: R74.8 Abnormal levels of other serum enzymes (principal)

== ENCOUNTER 2023-12-14 16:50 | Emergency (ER) | payer MEDICARE, MEDICAID ==
[~2023-12-14] VITALS: Ht 149.9 cm; Wt 54.1 kg
[2023-12-14 19:07] VITALS: TEMP 97.2; O2SAT 97
[2023-12-14 19:24] LABS: BASO # 0.1 10^3/uL (0.0-0.2); BASO % 2.7 % (0.0-1.0); EOS # 0.1 10^3/uL (0.0-0.5); EOS % 2.9 % (0.0-3.0); LYMPH # 1.3 10^3/uL (1.5-5.0); LYMPH % 34.2 % (24.0-44.0); MEAN CORPUSCULAR HEMOGLOBIN 33.6 pg (27.0-33.0); MEAN CORPUSCULAR VOLUME 98.7 fl (80.0-96.0); MONO # 0.5 10^3/uL (0.0-0.8); MONO % 12.7 % (2.0-8.0); NEUTROPHILS # 1.8 10^3/uL (1.5-8.5); NEUTROPHILS % 47.2 % (36.0-66.0); PLATELET COUNT, AUTOMATED 219 10^3/uL (150-450); RED BLOOD COUNT 4.76 10^6/uL (4.30-6.10); WHITE BLOOD COUNT 3.8 10^3/uL (4.0-10.0)
[2023-12-14 19:35] LABS: LIPASE 52 U/L (12-53)
[2023-12-14 19:37] LABS: ALBUMIN 3.6 G/DL (3.2-5.2); ALKALINE PHOSPHATASE 85 U/L (46-116); ALT/SGPT 26 U/L (7.0-40); AST/SGOT 20 U/L (<34); BILIRUBIN,DIRECT 0.2 MG/DL (<0.4); BILIRUBIN,TOTAL 0.6 MG/DL (0.3-1.2); BLOOD UREA NITROGEN 14 MG/DL (9-23); CALCIUM LEVEL 8.6 MG/DL (8.5-10.1); CARBON DIOXIDE LEVEL 34 MMOL/L (20-31); CHLORIDE LEVEL 105 MMOL/L (98-107); CREATININE FOR GFR 1.06 MG/DL (0.70-1.30); GLOMERULAR FILTRATION RATE > 60.0 (>56); GLUCOSE, FASTING 92 MG/DL (60-100); POTASSIUM SERUM 3.8 MMOL/L (3.5-5.1); SODIUM LEVEL 142 MMOL/L (136-145); TOTAL PROTEIN 6.4 G/DL (5.7-8.2)
[2023-12-15 00:51] VITALS: BP 109/67
[2023-12-15] MEDS ORDERED: MIRA3350 PO (04:33)
[2023-12-15] MEDS ORDERED: COLA100C5 PO (05:06)
== END 2023-12-15 05:43 | disposition home or self-care (01) ==
LOC: M ED 16:50
DX: K59.00 Constipation, unspecified (principal); E03.9 Hypothyroidism, unspecified; Q90.9 Down syndrome, unspecified; G30.9 Alzheimer's disease, unspecified; Z91.09 Other allergy status, other than to drugs and biological substances; Z79.1 Long term (current) use of non-steroidal anti-inflammatories (NSAID); Z79.810 Long term (current) use of selective estrogen receptor modulators (SERMs); Z79.899 Other long term (current) drug therapy

== ENCOUNTER 2024-01-11 19:02 | Emergency (ER) | payer MEDICARE, MEDICAID ==
[~2024-01-11 19:02] MED LIST changes: +COLA100C5 PO; +DEBR6.5S4 OU; +MIRA3350 PO; +PANT20TA6 PO
[2024-01-12 00:24] VITALS: TEMP 97.5
[2024-01-12 02:10] VITALS: BP 151/59
[2024-01-12 04:32] VITALS: O2SAT 98
== END 2024-01-12 06:37 | disposition home or self-care (01) ==
LOC: M ED 19:02
DX: S90.31XA Contusion of right foot, initial encounter (principal); W10.8XXA Fall (on) (from) other stairs and steps, initial encounter; Q90.9 Down syndrome, unspecified; E03.9 Hypothyroidism, unspecified; Y92.009 Unspecified place in unspecified non-institutional (private) residence as the place of occurrence of the external cause; Y93.89 Activity, other specified; Y99.9 Unspecified external cause status; Z79.1 Long term (current) use of non-steroidal anti-inflammatories (NSAID); Z79.899 Other long term (current) drug therapy

== ENCOUNTER → 2024-02-01 | Outpatient (REF) | payer MEDICARE, MEDICAID ==
[2024-02-01 17:54] LABS: APPEARANCE, URINE CLEAR (CLEAR); BACTERIA, URINE AUTO 1+ (NEGATIVE); BILIRUBIN, URINE AUTO NEGATIVE (NEGATIVE); BLOOD, URINE BLOOD NEGATIVE (NEGATIVE); COLOR, URINE YELLOW (YELLOW); GLUCOSE, URINE (UA) AUTO NEGATIVE (NEGATIVE); KETONE, URINE AUTO NEGATIVE (NEGATIVE); LEUKOCYTE ESTERASE, URINE AUTO NEGATIVE (NEGATIVE); MUCUS, URINE SMALL (NEGATIVE); NITRITE, URINE AUTO NEGATIVE (NEGATIVE); PROTEIN, URINE AUTO NEGATIVE (NEGATIVE); RBC, URINE AUTO 0 /HPF (0-3); SPECIFIC GRAVITY URINE AUTO 1.016 (1.002-1.035); SQUAMOUS EPITHELIAL CELL UR AU 0 /HPF (0-6); UROBILINOGEN, URINE AUTO 0.2 mg/dL (0.0-2.0); WBC, URINE AUTO 1 /HPF (0-3)
== END ==
LOC: M SMT 17:17
PROVIDERS: ATTEND Nurse Practitioner Family
DX: N32.89 Other specified disorders of bladder (principal); Z80.52 Family history of malignant neoplasm of bladder; Z79.899 Other long term (current) drug therapy

== ENCOUNTER → 2024-02-06 | Outpatient (CLI) | payer MEDICARE, MEDICAID ==
[~2024-02-06] MED LIST changes: +GASTROGRAFIN SOLUTION 30ML As Ordered ONE
== END ==
LOC: M RAD 08:26
PROVIDERS: ATTEND Family Medicine
DX: R10.84 Generalized abdominal pain (principal)
CPT/HCPCS: 74176; Q9963

== ENCOUNTER → 2024-02-12 | Outpatient (CLI) | payer MEDICARE, MEDICAID ==
[~2024-02-12] MED LIST changes: -GASTROGRAFIN SOLUTION 30ML As Ordered ONE
== END ==
LOC: M WHC 12:27
PROVIDERS: ATTEND Family Medicine
DX: M81.0 Age-related osteoporosis without current pathological fracture (principal)

== ENCOUNTER → 2024-02-19 | Outpatient (CLI) | payer MEDICARE, MEDICAID | LOC: M RAD 15:00 | PROVIDERS: ATTEND Nurse Practitioner Family | DX: N32.89 Other specified disorders of bladder (principal) ==

== ENCOUNTER 2024-03-12 07:10 | Inpatient (IN) | payer MEDICARE, MEDICAID ==
[2024-03-12] VITALS (21 sets, daily range): BP systolic 85–135; BP diastolic 50–71; TEMP 97.8–98; O2SAT 93–99
[~2024-03-12] VITALS: Ht 149.9 cm; Wt 55.8 kg
[2024-03-12 07:51] LABS: HEMATOCRIT 45.6 % (42.0-52.0); HEMOGLOBIN 15.5 g/dl (13.5-17.5); PLATELET COUNT, AUTOMATED 208 10^3/uL (150-450); RED BLOOD COUNT 4.56 10^6/uL (4.30-6.10); WHITE BLOOD COUNT 5.7 10^3/uL (4.0-10.0)
[2024-03-12] MEDS: NS 500 ML IV ONE (08:07)
[2024-03-12 09:11] LABS: ATYPICAL LYMPH 6 % (0-5); BASOPHILS 1 % (0-1); EOSINOPHILS 4 % (0-3); LYMPHOCYTES 16 % (16-44); METAMYELOCYTES 4 % (0-0); MONOCYTES 9 % (0-5); NEUTROPHILS 48 % (28-66)
[2024-03-12 09:13] LABS: PLATELET ESTIMATE NORMAL (NORMAL)
[2024-03-12 09:25] LABS: LIPASE 48 U/L (12-53)
[2024-03-12 09:29] LABS: FREE T4 1.22 NG/DL (0.89-1.76)
[2024-03-12 09:36] LABS: ALBUMIN 3.3 G/DL (3.2-5.2); ALKALINE PHOSPHATASE 91 U/L (46-116); ALT/SGPT 24 U/L (7.0-40); AST/SGOT 30 U/L (<34); BILIRUBIN,DIRECT 0.2 MG/DL (<0.4); BILIRUBIN,TOTAL 0.6 MG/DL (0.3-1.2); BLOOD UREA NITROGEN 22 MG/DL (9-23); CALCIUM LEVEL 8.4 MG/DL (8.5-10.1); CARBON DIOXIDE LEVEL 29 MMOL/L (20-31); CHLORIDE LEVEL 111 MMOL/L (98-107); CPK CREATINE PHOSPHOKINASE 139 U/L (46-171); CREATININE FOR GFR 1.05 MG/DL (0.70-1.30); GLOMERULAR FILTRATION RATE > 60.0 (>56); GLUCOSE, FASTING 101 MG/DL (60-100); MB/CK RELATIVE INDEX 0.71 (< OR =4); PHOSPHORUS LEVEL 1.3 MG/DL (2.5-4.9); POTASSIUM SERUM 4.2 MMOL/L (3.5-5.1); SODIUM LEVEL 142 MMOL/L (136-145); TOTAL PROTEIN 6.4 G/DL (5.7-8.2)
[2024-03-12] MEDS ORDERED: ISOVUE-370 76% 100ML VIAL As Ordered ONE (09:47)
[2024-03-12] MEDS: LIDOCAINE 2% 5ML JELLY UROJET TOP ONE (10:08)
[2024-03-12] MEDS: PIPERACILLIN/TAZOBACTAM SOD 4.5 GM in DEXTROSE 5% (D5W) ADV/MINI-BAG 50 ML IV ONE (10:08)
[2024-03-12] MEDS: NS 1,000 ML IV ONE ×2 (10:09→14:37)
[2024-03-12] MEDS: levETIRAcetam 250MG TABLET (KEPPRA) PO ONE (10:10)
[2024-03-12 10:57] LABS: MB/CK RELATIVE INDEX 0.57 (< OR =4)
[2024-03-12] MEDS ORDERED: IBAN150T6 PO (11:22)
[2024-03-12] MEDS ORDERED: MEMA10TA PO (11:24)
[2024-03-12] MEDS ORDERED: LORA-1041 PO (11:24)
[2024-03-12] MEDS ORDERED: PANT40TA29 PO (11:26)
[2024-03-12] MEDS ORDERED: [UNRECOGNIZED DRUG - CODE] PO (11:28)
[2024-03-12] MEDS ORDERED: TAMS1CAP17 PO (11:28)
[2024-03-12] MEDS ORDERED: D-20TAB PO (11:31)
[2024-03-12] MEDS ORDERED: MIRA3350 PO (11:39)
[2024-03-12] MEDS ORDERED: IBUP-1720 PO (11:39)
[2024-03-12] MEDS ORDERED: NEOM28OI TOP (11:39)
[2024-03-12] MEDS ORDERED: HOME MED LIST COMPLETE! XX SCH (11:40)
[2024-03-12] MEDS ORDERED: ATROPINE SULF 1MG/10ML SYRINGE IV PRN (13:20)
[2024-03-12] MEDS: cefTRIAXone SOD 1 GM in DEXTROSE 5% (D5W) ADV/MINI-BAG 50 ML IV ONE (14:37)
[2024-03-12] MEDS: IPRATROPIUM 0.5MG/ALBUTEROL 2.5MG INH SOL UD 3ML (DUONEB) NEB SCH (16:00)
[2024-03-12] MEDS: ACETAMINOPHEN *IV* 1,000 MG in IV 1 EA IV ONE (16:28)
[2024-03-12 17:18] LABS: CK-MB VALUE MASS 1.5 NG/ML (<3.6)
[2024-03-12 17:19] LABS: MAGNESIUM LEVEL 1.7 MG/DL (1.8-2.4); PHOSPHORUS LEVEL 2.7 MG/DL (2.5-4.9)
[2024-03-12 17:28] LABS: MB/CK RELATIVE INDEX 0.42 (< OR =4)
[2024-03-12] MEDS: MAG SULF 1GM/100ML (MAG RUN) 1 GM in IV 1 EA IV ONE (18:25)
[2024-03-12] MEDS: NS 1,000 ML IV SCH (18:26)
[2024-03-12] MEDS: KETOROLAC 30 MG/ML 1ML VIAL IV ONE (18:27)
[2024-03-12] MEDS ORDERED: LORazepam 2 MG/ML 1ML VIAL IV PRN (19:25)
[2024-03-12] MEDS: levETIRAcetam 250MG TABLET (KEPPRA) PO SCH (20:36)
[2024-03-12] MEDS ORDERED: MORPHINE 4 MG/ML 1ML VIAL IV PRN (22:25)
[2024-03-12] MEDS: MORPHINE 2 MG/ML 1ML VIAL IV PRN (22:34)
[2024-03-13] VITALS (19 sets, daily range): BP systolic 81–120; BP diastolic 50–74; TEMP 97.9–100.1; O2SAT 94–100
[2024-03-13 05:59] LABS: BASO # 0.1 10^3/uL (0.0-0.2); BASO % 1.9 % (0.0-1.0); EOS # 0.1 10^3/uL (0.0-0.5); EOS % 2.3 % (0.0-3.0); HEMATOCRIT 40.8 % (42.0-52.0); HEMOGLOBIN 13.8 g/dl (13.5-17.5); LYMPH # 0.7 10^3/uL (1.5-5.0); LYMPH % 13.5 % (24.0-44.0); MEAN CORPUSCULAR HEMOGLOBIN 34.2 pg (27.0-33.0); MEAN CORPUSCULAR HGB CONC 33.8 g/dl (32.0-36.5); MONO # 0.4 10^3/uL (0.0-0.8); MONO % 8.3 % (2.0-8.0); NEUTROPHILS # 3.5 10^3/uL (1.5-8.5); NEUTROPHILS % 73.6 % (36.0-66.0); PLATELET COUNT, AUTOMATED 166 10^3/uL (150-450); RED BLOOD COUNT 4.04 10^6/uL (4.30-6.10); WHITE BLOOD COUNT 4.8 10^3/uL (4.0-10.0)
[2024-03-13 06:28] LABS: ALBUMIN 2.6 G/DL (3.2-5.2); ALKALINE PHOSPHATASE 62 U/L (46-116); ALT/SGPT 18 U/L (7.0-40); AST/SGOT 24 U/L (<34); BILIRUBIN,TOTAL 0.7 MG/DL (0.3-1.2); BLOOD UREA NITROGEN 14 MG/DL (9-23); CALCIUM LEVEL 7.7 MG/DL (8.5-10.1); CARBON DIOXIDE LEVEL 28 MMOL/L (20-31); CHLORIDE LEVEL 111 MMOL/L (98-107); CK-MB VALUE MASS < 1.0 NG/ML (<3.6); CPK CREATINE PHOSPHOKINASE 272 U/L (46-171); CREATININE FOR GFR 0.92 MG/DL (0.70-1.30); GLOMERULAR FILTRATION RATE > 60.0 (>56); GLUCOSE, FASTING 88 MG/DL (60-100); MAGNESIUM LEVEL 2.1 MG/DL (1.8-2.4); MB/CK RELATIVE INDEX 0.36 (< OR =4); POTASSIUM SERUM 3.9 MMOL/L (3.5-5.1); SODIUM LEVEL 142 MMOL/L (136-145)
[2024-03-13] MEDS: FAMOTIDINE 20 MG TAB PO SCH (09:10)
[2024-03-13] MEDS: POLYETHYLENE GLYCOL (MIRALAX) 238GM BOTTLE PO ONE (09:10)
[2024-03-13] MEDS: ENOXAPARIN 30MG/0.3ML SYRINGE (J1650 PER 10MG) SC SCH (09:10)
[2024-03-13] MEDS: BISACODYL 10MG SUPP PR ONE (09:11)
[2024-03-13] MEDS: LR 1,000 ML IV ONE (09:13)
[2024-03-13] MEDS: DOXYCYCLINE HYCLATE 100MG TABLET PO SCH (09:56)
[2024-03-13] MEDS: cefTRIAXone SOD 1 GM in DEXTROSE 5% (D5W) ADV/MINI-BAG 50 ML IV SCH (09:56)
[2024-03-13] MEDS: ACETAMINOPHEN *IV* 500 MG in IV 1 EA IV PRN (09:58)
[2024-03-13] MEDS ORDERED: cefTRIAXone SOD 1 GM in DEXTROSE 5% (D5W) ADV/MINI-BAG 50 ML IV SCH (14:00)
[2024-03-13 14:48] LABS: PROCALCITONIN 0.05 ng/ml
[2024-03-13] MEDS: MEMANTINE 5MG TABLET (NAMENDA) PO SCH (23:12)
[2024-03-13] MEDS: TAMSULOSIN 0.4 MG CAP PO SCH (23:13)
[2024-03-14] VITALS (7 sets, daily range): BP systolic 104–140; BP diastolic 65–84; TEMP 97.4–98.3; O2SAT 96–98
[2024-03-14] MEDS: diphenhydrAMINE 25MG CAP PO STA (01:22)
[2024-03-14] MEDS: RAMELTEON 8 MG TAB (ROZEREM) PO STA (01:23)
[2024-03-14 04:52] LABS: BASO # 0.1 10^3/uL (0.0-0.2); BASO % 1.5 % (0.0-1.0); EOS # 0.1 10^3/uL (0.0-0.5); EOS % 1.3 % (0.0-3.0); HEMATOCRIT 40.2 % (42.0-52.0); HEMOGLOBIN 13.7 g/dl (13.5-17.5); LYMPH # 0.8 10^3/uL (1.5-5.0); LYMPH % 11.3 % (24.0-44.0); MEAN CORPUSCULAR HEMOGLOBIN 33.6 pg (27.0-33.0); MEAN CORPUSCULAR HGB CONC 34.1 g/dl (32.0-36.5); MEAN CORPUSCULAR VOLUME 98.5 fl (80.0-96.0); MONO # 0.6 10^3/uL (0.0-0.8); MONO % 9.5 % (2.0-8.0); NEUTROPHILS # 5.1 10^3/uL (1.5-8.5); PLATELET COUNT, AUTOMATED 170 10^3/uL (150-450); RED BLOOD COUNT 4.08 10^6/uL (4.30-6.10); WHITE BLOOD COUNT 6.7 10^3/uL (4.0-10.0)
[2024-03-14 05:23] LABS: ALBUMIN 2.7 G/DL (3.2-5.2); ALKALINE PHOSPHATASE 67 U/L (46-116); ALT/SGPT 19 U/L (7.0-40); AST/SGOT 23 U/L (<34); BILIRUBIN,TOTAL 0.5 MG/DL (0.3-1.2); BLOOD UREA NITROGEN 10 MG/DL (9-23); CALCIUM LEVEL 7.9 MG/DL (8.5-10.1); CARBON DIOXIDE LEVEL 26 MMOL/L (20-31); CHLORIDE LEVEL 112 MMOL/L (98-107); CPK CREATINE PHOSPHOKINASE 259 U/L (46-171); CREATININE FOR GFR 0.82 MG/DL (0.70-1.30); GLOMERULAR FILTRATION RATE > 60.0 (>56); GLUCOSE, FASTING 106 MG/DL (60-100); MAGNESIUM LEVEL 1.8 MG/DL (1.8-2.4); SODIUM LEVEL 142 MMOL/L (136-145); TOTAL PROTEIN 5.2 G/DL (5.7-8.2)
[2024-03-14] MEDS: LIDOCAINE VISCOUS 2% SOLN 15ML UDC PO PRN (09:56)
[2024-03-14] MEDS: HYOSCYAMINE SULFATE 0.125 MG SUBL TABLET SL PRN (09:56)
[2024-03-14] MEDS: MAALOX 30 ML SUSP *UDC PO PRN (10:06)
[2024-03-14] MEDS ORDERED: KEPP250T5 PO (16:38)
[2024-03-14] MEDS ORDERED: FAMO20TA PO (16:38)
[2024-03-14] MEDS ORDERED: CEFD300CAP PO (16:38)
[2024-03-14] MEDS ORDERED: MYLASSUD PO (16:38)
[2024-03-14] MEDS ORDERED: DOXY100T PO (16:38)
[2024-03-15] MEDS ORDERED: CEFDINIR 300 MG CAP (OMNICEF) PO SCH (09:00)
== END 2024-03-14 17:52 | disposition home or self-care (01) | DRG 101 ==
LOC: M ED 07:10 → EDBD 07:10 → M ED INP 13:56 → M ICU 14:08
PROVIDERS: ADMIT Internal Medicine Critical Care Medicine; ATTEND Internal Medicine Critical Care Medicine
DX: R56.9 Unspecified convulsions (principal); J98.11 Atelectasis; S22.049A Unspecified fracture of fourth thoracic vertebra, initial encounter for closed fracture; E03.9 Hypothyroidism, unspecified; F81.9 Developmental disorder of scholastic skills, unspecified; X58.XXXA Exposure to other specified factors, initial encounter; Y92.9 Unspecified place or not applicable; Q90.9 Down syndrome, unspecified; F03.90 Unspecified dementia, unspecified severity, without behavioral disturbance, psychotic disturbance, mood disturbance, and anxiety; Z79.899 Other long term (current) drug therapy; Z79.890 Hormone replacement therapy

== ENCOUNTER → 2024-05-23 | Outpatient (CLI) | payer MEDICARE, MEDICAID ==
[~2024-05-23] MED LIST changes: +CEFD300CAP PO; +D-20TAB PO; +DOXY100T PO; +FAMO20TA PO; +IBAN150T10 PO; +IBUP-1720 PO; +KEPP250T5 PO; +LORA-1041 PO; +MEMA10TA PO; +MYLASSUD PO; +NEOM28OI TOP; +PANT40TA29 PO; +TAMS1CAP17 PO; +[UNRECOGNIZED DRUG - CODE] PO
== END ==
LOC: M WUC 14:38
DX: R63.4 Abnormal weight loss (principal)

== ENCOUNTER → 2024-06-04 | Outpatient (REF) | payer MEDICARE, MEDICAID ==
[2024-06-04 13:37] LABS: APPEARANCE, URINE CLEAR (CLEAR); BACTERIA, URINE AUTO NEGATIVE (NEGATIVE); BILIRUBIN, URINE AUTO NEGATIVE (NEGATIVE); BLOOD, URINE BLOOD NEGATIVE (NEGATIVE); COLOR, URINE YELLOW (YELLOW); GLUCOSE, URINE (UA) AUTO NEGATIVE (NEGATIVE); KETONE, URINE AUTO NEGATIVE (NEGATIVE); LEUKOCYTE ESTERASE, URINE AUTO NEGATIVE (NEGATIVE); NITRITE, URINE AUTO NEGATIVE (NEGATIVE); PROTEIN, URINE AUTO NEGATIVE (NEGATIVE); RBC, URINE AUTO 0 /HPF (0-3); SPECIFIC GRAVITY URINE AUTO 1.006 (1.002-1.035); SQUAMOUS EPITHELIAL CELL UR AU 0 /HPF (0-6); UROBILINOGEN, URINE AUTO 0.2 mg/dL (0.0-2.0); WBC, URINE AUTO 0 /HPF (0-3)
== END ==
LOC: M SMT 12:45
PROVIDERS: ATTEND Nurse Practitioner Family
DX: R39.89 Other symptoms and signs involving the genitourinary system (principal)

== ENCOUNTER → 2024-07-29 | Outpatient (REF) | payer MEDICARE, MEDICAID ==
[2024-07-29 16:24] LABS: APPEARANCE, URINE CLEAR (CLEAR); BACTERIA, URINE AUTO NEGATIVE (NEGATIVE); BILIRUBIN, URINE AUTO NEGATIVE (NEGATIVE); BLOOD, URINE BLOOD NEGATIVE (NEGATIVE); COLOR, URINE STRAW (YELLOW); GLUCOSE, URINE (UA) AUTO NEGATIVE (NEGATIVE); KETONE, URINE AUTO NEGATIVE (NEGATIVE); LEUKOCYTE ESTERASE, URINE AUTO NEGATIVE (NEGATIVE); NITRITE, URINE AUTO NEGATIVE (NEGATIVE); PROTEIN, URINE AUTO NEGATIVE (NEGATIVE); RBC, URINE AUTO 1 /HPF (0-3); SPECIFIC GRAVITY URINE AUTO 1.002 (1.002-1.035); SQUAMOUS EPITHELIAL CELL UR AU 0 /HPF (0-6); UROBILINOGEN, URINE AUTO 0.2 mg/dL (0.0-2.0); WBC, URINE AUTO 0 /HPF (0-3)
== END ==
LOC: M LAB REF 15:13
PROVIDERS: ATTEND Physician Assistant
DX: N39.0 Urinary tract infection, site not specified (principal); Z60.8 Other problems related to social environment

== ENCOUNTER 2024-11-20 09:34 | Inpatient (IN) | payer MEDICARE, MEDICAID ==
[2024-11-20] VITALS (24 sets, daily range): BP systolic 97–156; BP diastolic 54–80; TEMP 97.3–100.8; O2SAT 92–100
[~2024-11-20] VITALS: Ht 154.9 cm; Wt 52.8 kg
[~2024-11-20 09:34] MED LIST changes: +MAG30ORA18 PO; -MYLASSUD PO
[2024-11-20 10:08] LABS: BASO # 0.1 10^3/uL (0.0-0.2); BASO % 1.6 % (0.0-1.0); EOS # 0.2 10^3/uL (0.0-0.5); EOS % 2.7 % (0.0-3.0); LYMPH # 2.2 10^3/uL (1.5-5.0); LYMPH % 39.1 % (24.0-44.0); MONO # 0.5 10^3/uL (0.0-0.8); MONO % 9.0 % (2.0-8.0); NEUTROPHILS # 2.4 10^3/uL (1.5-8.5); NEUTROPHILS % 43.8 % (36.0-66.0); PLATELET COUNT, AUTOMATED 202 10^3/uL (150-450)
[2024-11-20 10:21] LABS: INR 1.04
[2024-11-20] MEDS: MIDAZOLAM INJ 2 MG/2 ML VIAL IV ONE (10:21)
[2024-11-20] MEDS: MIDAZOLAM 100MG/100ML-0.9%NACL 100 MG in IV 1 EA IV SCH ×2 (10:25→18:04)
[2024-11-20] MEDS: NS (Normal Saline) 0.9% 1,000 ML IV ONE (10:26)
[2024-11-20] MEDS: NALOXONE 2 MG/2 ML SYRINGE IV STA (10:26)
[2024-11-20 10:33] LABS: ALT/SGPT 31.0 U/L (7.0-40); AST/SGOT 49.0 U/L (<34); CALCIUM LEVEL 7.4 MG/DL (8.5-10.1); CARBON DIOXIDE LEVEL 26.0 MMOL/L (20-31); CHLORIDE LEVEL 103.0 MMOL/L (98-107); CREATININE FOR GFR 1.1 MG/DL (0.70-1.30); GLOMERULAR FILTRATION RATE 80.3 (>56); MAGNESIUM LEVEL 2.4 MG/DL (1.8-2.4); POTASSIUM SERUM 3.5 MMOL/L (3.5-5.1); SODIUM LEVEL 144.0 MMOL/L (136-145)
[2024-11-20 10:36] LABS: ABG BASE EXCESS -1.2 (-2.0-2.0); ABG HCO3 22.4 MMOL/L (22.0-26.0); ABG O2 SATURATION 98.6 % (95.0-99.0); ABG PARTIAL PRESSURE CO2 34.8 mmHg (35.0-45.0); ABG PARTIAL PRESSURE O2 113.0 mmHg (75.0-100.0); ABG STANDARD HCO3 23.5 MMOL/L. (22.0-26.0); ABG TOTAL CO2 23.5 MMOL/L (22.0-29.0); ABG pH (ARTERIAL) 7.427 UNITS (7.350-7.450)
[2024-11-20] MEDS ORDERED: IPRATROPIUM 0.5 MG/ALBUTEROL 2.5 MG INH SOL UD 3 ML NEB PRN (12:25)
[2024-11-20] MEDS ORDERED: levETIRAcetam INJection 500 MG in IV 1 EA IV SCH (13:00)
[2024-11-20 13:29] LABS: CORTISOL AM 12.2 UG/DL (4.3-22.4)
[2024-11-20 13:36] LABS: PLATELET COUNT, AUTOMATED 208 10^3/uL (150-450)
[2024-11-20 14:01] LABS: CALCIUM LEVEL 7.1 MG/DL (8.5-10.1); CARBON DIOXIDE LEVEL 29 MMOL/L (20-31); CHLORIDE LEVEL 106 MMOL/L (98-107); CREATININE FOR GFR 0.98 MG/DL (0.70-1.30); GLOMERULAR FILTRATION RATE > 90.0 (>56); POTASSIUM SERUM 4.7 MMOL/L (3.5-5.1); SODIUM LEVEL 145 MMOL/L (136-145)
[2024-11-20] MEDS ORDERED: VALPROATE SOD INJ 500 MG in D5W 50 ML IV SCH (15:00)
[2024-11-20] MEDS ORDERED: SILO8CAP3 PO (15:32)
[2024-11-20] MEDS ORDERED: PARO20TA3 PO (15:32)
[2024-11-20] MEDS ORDERED: DONE5TAB82 PO (15:32)
[2024-11-20] MEDS ORDERED: DIVA125C6 PO (15:32)
[2024-11-20] MEDS ORDERED: DOCU5LIQ PO (15:33)
[2024-11-20] MEDS ORDERED: HOME MED LIST COMPLETE! XX SCH (15:35)
[2024-11-20] MEDS: PANTOPRAZOLE 40MG VIAL IV SCH (16:07)
[2024-11-20] MEDS: VALPROATE SOD INJ 500 MG in DEXTROSE 5% (D5W) ADV/MINI-BAG 50 ML IV SCH (16:08)
[2024-11-20 16:41] LABS: APPEARANCE, URINE HAZY (CLEAR); BACTERIA, URINE AUTO NEGATIVE (NEGATIVE); BILIRUBIN, URINE AUTO NEGATIVE (NEGATIVE); BLOOD, URINE BLOOD 2+ (NEGATIVE); GLUCOSE, URINE (UA) AUTO NEGATIVE (NEGATIVE); GRANULAR CAST, URINE AUTO 3 /LPF; KETONE, URINE AUTO NEGATIVE (NEGATIVE); LEUKOCYTE ESTERASE, URINE AUTO NEGATIVE (NEGATIVE); MUCUS, URINE SMALL (NEGATIVE); NITRITE, URINE AUTO NEGATIVE (NEGATIVE); PROTEIN, URINE AUTO NEGATIVE (NEGATIVE); RBC, URINE AUTO 46 /HPF (0-3); SPECIFIC GRAVITY URINE AUTO 1.015 (1.002-1.035); SQUAMOUS EPITHELIAL CELL UR AU 0 /HPF (0-6); UROBILINOGEN, URINE AUTO 0.2 mg/dL (0.0-2.0); WBC, URINE AUTO 8 /HPF (0-3)
[2024-11-20 17:28] LABS: RSV AMPLIFICATION NEGATIVE (NEGATIVE)
== END 2024-11-20 21:54 | disposition short-term general hospital (02) | DRG 947 ==
LOC: M ED 09:34 → M ED INP 12:23 → M ICU 13:27
PROVIDERS: ADMIT Internal Medicine; ATTEND Internal Medicine
PROC: 5A1935Z Respiratory Ventilation, Less than 24 Consecutive Hours (ICD-10-PCS; principal; 2024-11-20)
DX: R68.0 Hypothermia, not associated with low environmental temperature (principal); I46.9 Cardiac arrest, cause unspecified; Q90.9 Down syndrome, unspecified; G40.909 Epilepsy, unspecified, not intractable, without status epilepticus; E03.9 Hypothyroidism, unspecified; F79 Unspecified intellectual disabilities; Z79.899 Other long term (current) drug therapy; Z51.5 Encounter for palliative care; F03.90 Unspecified dementia, unspecified severity, without behavioral disturbance, psychotic disturbance, mood disturbance, and anxiety